=== PATIENT | male | born 1995 | race Caucasian/White ===

== ENCOUNTER 2020-07-24 21:22 | Emergency (ER) | payer OTHER, SELFPAY ==
[2020-07-24 21:32] VITALS: BP 122/85; PULSE 100; RESP 14; TEMP 37.1; O2SAT 99; BMI 30.4
--- NOTE | 2020-07-24 22:23 | ED_ITS ---
HPI - Ear Problem General Chief complaint: Ear Problems Stated complaint: Ringing in the ear Time Seen by Provider: 07/24/20 22:22 Source: patient Mode of arrival: ambulatory Limitations: no limitations History of Present Illness HPI Narrative: This is a 25-year-old male who presents with approximately 10 hours ear ringing in the right ear without loss of hearing and not affecting his ADLs. His history is significant for anxiety for which he takes clonidine on a p.r.n. status and states he did not take it today. 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 He denies any visual abnormalities, dizziness, headaches, jaw pain, fevers, chills, excessive caffeine intake, NSAID or aspirin use. Related Data Allergies Allergy/AdvReac Type Severity Reaction Status Date / Time No Known Allergies Allergy Verified 07/24/20 21:35 [No Known Allergies*] Review of Systems Review of Systems: Pertinent positives and negatives as stated in HPI 10 point review of systems is otherwise negative. PMFSH Past Medical History Source: nursing notes reviewed Medical History Anxiety Social History Social History Smoking Status: Never smoker Use of substances other than those prescribed or required for medical reasons: No Advance Directives: No Advance Directives Information Provided: No Physical Exam Vital Signs: Vital Signs: Last Vital Signs Temp 98.8 F 07/24/20 21:32 Pulse 100 07/24/20 21:32 Resp 14 07/24/20 21:32 BP 122/85 07/24/20 21:32 Pulse Ox 99 07/24/20 21:32 Body Mass Index 30.4 VITAL SIGNS: Reviewed. GENERAL: Well developed, well nourished, in no acute distress. HEAD: Normocephalic/atraumatic, EYES: PERRLA, EOMI intact without pain, no nystagmus/pallor/icterus noted EARS: Ext canals without abnormality, TMs non-bulging and non-erythematous NOSE: Nares patent bilateral OROPHARYNX: no oral lesions noted, posterior pharynx clear and non-erythematous without noted tonsillar enlargement/erythema/exudates NECK: Supple, no adenopathy LUNGS: Normal breath sounds. No adventitious sounds or accessory muscle use. SpO2<99> CARDIOVASCULAR: Regular rate and rhythm without noted murmurs, no JVD or lower extremity edema, no carotid bruits noted ABDOMEN: Soft, non-tender, non-distended with bowel sounds. No rigidity. No guarding. No palpable masses or hernias noted MUSCULOSKELETAL: No tenderness, deformities, or effusions noted on gross inspection. EXTREMITIES: No cyanosis, clubbing or edema. SKIN: Inspection of the skin reveals no rashes, ulcerations, jaundice, pallor, or petechiae. NEUROLOGIC: Alert and oriented x 4. Strength and sensation to light touch were grossly intact x 4, cranial nerves 2-12 are grossly intact, there are no abnormalities on cerebellar exam. Course Course Course Narrative: This is a 25-year-old male with history and clinical presentation consistent with likely viral versus noise exposure and there are no clinical findings to suggest more ominous etiology such as neuromas, toxicities, traumas. Patient was recommended to follow up with audiology should this persist and he was given recommendations to use either music or white noise to overcome the tinnitus. Discharge Plan Discharge Clinical Impression: Tinnitus of right ear Patient Disposition: Home, Self-Care Instructions: Tinnitus (ED) Additional Instructions: Recommend masking the ear ringing with either music or white noise. Recommend further evaluation by audiology should this persist, but this is felt likely secondary to viral etiology. The patient and/or family acknowledge understanding of results (as applicable), diagnosis, treatment plan, need for follow up, and symptoms that should prompt a return to the emergency room. Referrals: Physician,Unknown [Primary Care Provider] - 2 days ( for further evaluation of tinnitus should this persist.)
== END 2020-07-24 23:10 | disposition home or self-care (01) ==
PROVIDERS: Emergency Provider Student in an Organized Health Care Education/Training Program
DX: H93.11 Tinnitus, right ear (principal); H92.01 Otalgia, right ear
CPT/HCPCS: 99283